=== PATIENT | female | born 1985 | race American Indian/Alaskan Native ===

== ENCOUNTER 2019-06-03 09:09 | Emergency (ER) | payer OTHER ==
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
[2019-06-03 10:54] VITALS: BP 135/74
== END 2019-06-03 10:52 | disposition home or self-care (01) ==
LOC: ED 09:09
DX: M54.9 Dorsalgia, unspecified (principal); Z98.890 Other specified postprocedural states; V49.49XA Driver injured in collision with other motor vehicles in traffic accident, initial encounter; Y93.89 Activity, other specified; Y92.410 Unspecified street and highway as the place of occurrence of the external cause; Y99.8 Other external cause status